=== PATIENT | male | born 1955 | race Caucasian/White ===

== ENCOUNTER 2017-12-01 13:04 | Emergency (ER) | payer OTHER ==
[~2017-12-01] VITALS: Ht 180.3 cm; Wt 84.5 kg
[2017-12-01 13:11] VITALS: BP 150/79
[2017-12-01] MEDS ORDERED: LIDOCAINE-MPF 2% ,5ML SQ ONE (13:30)
[2017-12-01] MEDS ORDERED: LIDOCAINE-MPF 1%, 5ML ONE (13:31)
[2017-12-01] MEDS ORDERED: LIDOCAINE-MPF 2% ,5ML ONE (13:50)
== END 2017-12-01 14:22 | disposition home or self-care (01) ==
LOC: ED 14:16
DX: L03.032 Cellulitis of left toe (principal)
CPT/HCPCS: 10060; 99283